=== PATIENT | female | born 1990 | race Caucasian/White ===

== ENCOUNTER 2018-04-18 20:40 | Emergency (ER) | payer OTHER, SELFPAY ==
[2018-04-18] MEDS ORDERED: HYDROCODONE/APAP 7.5/325 MG TAB ONE (21:18)
[2018-04-18 22:12] LABS: Urine Blood NEGATIVE (NEG); Urine Glucose NEGATIVE (NEG); Urine Protein TRACE (NEG)
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
[2018-04-18] MEDS ORDERED: KETOROLAC 30 MG/ML INJ ONE (22:14)
--- NOTE | 2018-04-18 22:40 | RAD REPORT ---
EXAM DESCRIPTION: Gerry Patel (2 Views)04/18/2018 9:25 pm CLINICAL HISTORY: Cough COMPARISON: None FINDINGS: The lungs appear clear of acute infiltrate. The heart is normal size IMPRESSION: No acute abnormalities displayed
== END 2018-04-18 22:33 | disposition home or self-care (01) ==
LOC: ER 20:40
DX: S20.229A Contusion of unspecified back wall of thorax, initial encounter (principal); V43.52XA Car driver injured in collision with other type car in traffic accident, initial encounter; Y93.89 Activity, other specified; Y92.410 Unspecified street and highway as the place of occurrence of the external cause; F17.210 Nicotine dependence, cigarettes, uncomplicated
CPT/HCPCS: 71046; 81003; 81025; 96372; 99284

== ENCOUNTER 2018-09-27 17:52 | Emergency (ER) | payer SELFPAY ==
--- NOTE | 2018-09-27 20:18 | RAD REPORT ---
EXAM DESCRIPTION: RAD - Foot Left 3 View - 09/27/2018 7:57 pm CLINICAL HISTORY: Left foot pain and swelling, no precipitating event COMPARISON: None. FINDINGS: No fracture, dislocation or periosteal reaction. No acute or destructive bony process. No air or foreign body in the soft tissues. IMPRESSION: Negative left foot examination.
--- NOTE | 2018-09-27 20:36 | ER ---
Nurse's Notes [facility] Name: Iliana Duff Age: 27 yrs Sex: Female : 1990 Arrival Date: 09/27/2018 Time: 17:55 Bed 11 Private MD: Diagnosis: Pain in left foot Presentation: 09/27 17:56 Presenting complaint: Patient states: left foot pain and swelling that started today sv after getting out of bed. Transition of care: patient was not received from another setting of care. Onset of symptoms was September 27, 2018. Care prior to arrival: None. 17:56 Method Of Arrival: Ambulatory sv 17:56 Acuity: LOGAN 4 sv 20:24 Risk Assessment: Do you want to hurt yourself or someone else? Patient reports no jl3 desire to harm self or others. Initial Sepsis Screen: Does the patient meet any 2 criteria? HR > 90 bpm. Does the patient have a suspected source of infection? No. Patient's initial sepsis screen is negative. Triage Assessment: 17:56 General: Appears in no apparent distress. uncomfortable, Behavior is calm, cooperative, sv appropriate for age. Pain: Complains of pain in left foot Pain currently is 8 out of 10 on a pain scale. Neuro: Level of Consciousness is awake, alert, obeys commands, Oriented to person, place, time, situation, Moves all extremities. Full function Gait is steady, with slight limp. Respiratory: Respiratory effort is even, unlabored, Respiratory pattern is regular, symmetrical. 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 - Social history:: Smoking status: Patient uses tobacco products, smokes one-half pack cigarettes per day. - Ebola Screening: : No symptoms or risks identified at this time. Screenin:24 Abuse screen: Intervention for positive screen: None noted. Nutritional screening: No jl3 deficits noted. Tuberculosis screening: No symptoms or risk factors identified. Fall Risk None identified. Assessment: 19:21 General: Appears uncomfortable, well developed, Behavior is calm, cooperative, Reports jl3 Pt states woke this a.m. and stepped onto floor with L. foot, felt pain. States pain 8/10 currently. Inflammation noted to L. medial foot. Pain: Complains of pain in instep of left foot and arch of left foot Pain currently is 8 out of 10 on a pain scale. Pain began 4 hours ago. Is lasting more than 1 hour. Alleviated by rest, Aggravated by weight bearing. Neuro: No deficits noted. Cardiovascular: No deficits noted. Respiratory: No deficits noted. GI: No deficits noted. : No deficits noted. EENT: No deficits noted. Musculoskeletal: Tenderness present in left foot. Injury Description: Inflammation to L. medial foot. Vital Signs: 17:56 BP 140 / 87; Pulse 107; Resp 18; Temp 98.3; Pulse Ox 100% ; Weight 101.15 kg; Height 5 sv ft. 3 in. (160.02 cm); Pain 8/10; 20:23 BP 132 / 76; Pulse 98; Resp 18; Pulse Ox 99% ; Pain 3/10; jl3 17:56 Body Mass Index 39.50 (101.15 kg, 160.02 cm) sv ED Course: 17:55 Patient arrived in ED. mr 17:56 Triage completed. sv 17:57 Arm band placed on Patient placed in waiting room, Patient notified of wait time. sv 19:11 Laure [place] [facility]C [facility] kb 19:11 Joel Aguilar MD is Attending Physician. kb 19:21 Moe Asencio RN is Primary Nurse. jl3 19:57 X-ray completed. Portable x-ray completed in exam room. Patient tolerated procedure ag1 well. 19:57 Foot Left 3 View XRAY In Process Unspecified. EDMS 20:47 No provider procedures requiring assistance completed. Patient did not have IV access jl3 during this emergency room visit. 20:48 Patient has correct armband on for positive identification. jl3 Administered Medications: No medications were administered Outcome: 20:35 Discharge ordered by . kb 20:48 Discharged to home ambulatory, with family. jl3 20:48 Condition: stable 20:48 Discharge instructions given to patient, friend, Prescriptions given X 1. 20:48 Patient left the ED. jl3 Signatures: Dispatcher [employer] EDMS Laure Birmingham FNP-C FNP-Ckb Verde, Stephanie, RN RN sv Choe, Moe Marrufo, RN RN jl3 Gabriel, Perla [facility]
--- NOTE | 2018-09-27 20:36 | EDPHYS ---
Physician Documentation [facility] Name: Iliana Duff Age: 27 yrs Sex: Female : 1990 Arrival Date: 09/27/2018 Time: 17:55 Bed 11 Private MD: ED Physician Joel Aguilar HPI: 09/27 21:06 This 27 yrs old Female presents to ER via Ambulatory with complaints of Foot kb Injury. 21:06 The patient presents with pain, that is acute, swelling, tenderness. The complaints kb affect the medial aspect of left heel. Context: The problem was sustained at home, resulted from an unknown cause, the patient can fully bear weight, the patient is able to ambulate. Onset: The symptoms/episode began/occurred this morning. Modifying factors: The symptoms are alleviated by nothing. the symptoms are aggravated by nothing. Associated signs and symptoms: Pertinent positives: swelling, Pertinent negatives calf tenderness, fever, nausea, numbness, rash, tingling, vomiting, warmth, weakness. Treatment prior to arrival includes: no previous treatment. Severity of symptoms: At their worst the symptoms were mild, in the emergency department the symptoms are unchanged. The patient has not experienced similar symptoms in the past. The patient has not recently seen a physician. 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 - Social history:: Smoking status: Patient uses tobacco products, smokes one-half pack cigarettes per day. - Ebola Screening: : No symptoms or risks identified at this time. ROS: 21:05 Constitutional: Negative for fever, chills, and weight loss, Cardiovascular: Negative kb for chest pain, palpitations, and edema, Respiratory: Negative for shortness of breath, cough, wheezing, and pleuritic chest pain, Abdomen/GI: Negative for abdominal pain, nausea, vomiting, diarrhea, and constipation, Back: Negative for injury and pain, Skin: Negative for injury, rash, and discoloration, Neuro: Negative for headache, weakness, numbness, tingling, and seizure. 21:05 MS/extremity: Positive for injury or acute deformity, pain, swelling, tenderness, of the medial aspect of left heel. Exam: 21:06 Constitutional: This is a well developed, well nourished patient who is awake, alert, kb and in no acute distress. Head/Face: Normocephalic, atraumatic. Chest/axilla: Normal chest wall appearance and motion. Nontender with no deformity. No lesions are appreciated. Cardiovascular: Regular rate and rhythm with a normal S1 and S2. No gallops, murmurs, or rubs. Normal PMI, no JVD. No pulse deficits. Respiratory: Lungs have equal breath sounds bilaterally, clear to auscultation and percussion. No rales, rhonchi or wheezes noted. No increased work of breathing, no retractions or nasal flaring. Abdomen/GI: Soft, non-tender, with normal bowel sounds. No distension or tympany. No guarding or rebound. No evidence of tenderness throughout. Back: No spinal tenderness. No costovertebral tenderness. Full range of motion. Skin: Warm, dry with normal turgor. Normal color with no rashes, no lesions, and no evidence of cellulitis. Neuro: Awake and alert, GCS 15, oriented to person, place, time, and situation. Cranial nerves II-XII grossly intact. Motor strength 5/5 in all extremities. Sensory grossly intact. Cerebellar exam normal. Normal gait. 21:06 Musculoskeletal/extremity: Extremities: grossly normal except: noted in the medial aspect of left heel: pain, swelling, tenderness, ROM: intact in all extremities, Circulation is intact in all extremities. Sensation intact. Weight bearing: able to fully bear weight. Vital Signs: 17:56 BP 140 / 87; Pulse 107; Resp 18; Temp 98.3; Pulse Ox 100% ; Weight 101.15 kg; Height 5 sv ft. 3 in. (160.02 cm); Pain 8/10; 20:23 BP 132 / 76; Pulse 98; Resp 18; Pulse Ox 99% ; Pain 3/10; jl3 17:56 Body Mass Index 39.50 (101.15 kg, 160.02 cm) sv MDM: 19:11 Patient medically screened. kb 21:05 Data reviewed: vital signs, nurses notes. Data interpreted: Pulse oximetry: on room air kb is 99 %. Interpretation: normal. Counseling: I had a detailed discussion with the patient and/or guardian regarding: the historical points, exam findings, and any diagnostic results supporting the discharge/admit diagnosis, radiology results, the need for outpatient follow up, a family practitioner, to return to the emergency department if symptoms worsen or persist or if there are any questions or concerns that arise at home. 09/27 19:37 Order name: Foot Left 3 View XRAY; Complete Time: 20:27 kb Administered Medications: No medications were administered Disposition: 09/27/18 20:35 Discharged to Home. Impression: Pain in left foot. - Condition is Stable. - Discharge Instructions: Foot Pain. - Prescriptions for Diclofenac Sodium 75 mg Oral Tablet, Delayed Release (E.C.) - take 1 tablet by ORAL route 2 times per day As needed; 30 tablet. - Medication Reconciliation Form, Thank You Letter, Antibiotic Education, Prescription Opioid Use form. - Follow up: Emergency Department; When: As needed; Reason: Worsening of condition. Follow up: Private Physician; When: 2 - 3 days; Reason: Recheck today's complaints, Continuance of care, Re-evaluation by your physician. Addendum: 10/05/2018 03:22 Co-signature as Attending Physician, Joel Aguilar MD. g s Signatures: Dispatcher [employer] EDMS Laure Birmingham, AUTOMOBILE RENTAL AGENT-C AUTOMOBILE RENTAL AGENT-Ckb Heather Mejia RN RN Moe Can RN RN jl3 Joel Aguilar MD MD Corrections: (The following items were deleted from the chart) 09/27 20:48 20:35 09/27/2018 20:35 Discharged to Home. Impression: Pain in left foot. Condition is jl3 Stable. Forms are Medication Reconciliation Form, Thank You Letter, Antibiotic Education, Prescription Opioid Use. Follow up: Emergency Department; When: As needed; Reason: Worsening of condition. Follow up: Private Physician; When: 2 - 3 days; Reason: Recheck today's complaints, Continuance of care, Re-evaluation by your physician. kb
== END 2018-09-27 20:48 | disposition home or self-care (01) ==
LOC: ER 17:52
DX: M79.672 Pain in left foot (principal); F17.210 Nicotine dependence, cigarettes, uncomplicated

== ENCOUNTER 2019-06-28 20:49 | Emergency (ER) | payer OTHER, SELFPAY ==
[2019-06-28] MEDS ORDERED: NA CHLORIDE 0.9% 1,000 ML ONE (22:03)
[2019-06-28] MEDS ORDERED: ACETAMINOPHEN 500 MG TAB ONE (22:03)
[2019-06-28] MEDS ORDERED: ONDANSETRON 4 MG/2 ML VIAL ONE (22:03)
[2019-06-28 22:11] LABS: Absolute Lymphocytes (CBC) 2.8 K/uL (0.7-4.9); Basophils % 0.8 % (0-1.3); Lymphocytes % 25.7 % (15.3-44.8); MPV 8.2 fL (7.6-11.3); RBC Red Blood Cell Count 4.34 M/uL (3.86-4.86)
[2019-06-28 22:22] LABS: Urine Blood NEGATIVE (NEG); Urine Glucose NEGATIVE (NEG); Urine Protein NEGATIVE (NEG); Urine Specific Gravity 1.025 (1.005-1.030); Urine pH 6.5 (5.0-7.0)
[2019-06-28 22:24] LABS: Urine Bacteria LOADED /HPF (<20); Urine Culture Reflex Order REFLEXED; Urine RBC <5 /HPF (NONE SEEN)
[2019-06-28 22:27] LABS: ALT/SGPT 17 U/L (12-78); AST/SGOT 13 U/L (15-37); Alkaline Phosphatase 111 U/L (45-117); BUN Blood Urea Nitrogen 6 mg/dL (7-18); Bicarbonate 21 mmol/L (21-32); Bilirubin Direct < 0.1 mg/dL (0-0.2); Bilirubin Total 0.2 mg/dL (0.2-1.0); Glucose Level 93 mg/dL (74-106); Lipase 67 U/L (73-393); Potassium 3.5 mmol/L (3.5-5.1); Sodium Level 137 mmol/L (136-145)
[2019-06-28] MEDS ORDERED: CEFTRIAXONE/SWI 1gm 1 GM/10 ML SYR ONE (22:30)
--- NOTE | 2019-06-28 22:30 | ER ---
Nurse's Notes [facility] Name: Iliana Duff Age: 28 yrs Sex: Female : 1990 Arrival Date: 06/28/2019 Time: 20:59 Bed 5 Private MD: Diagnosis: Acute cystitis Presentation: 06/28 21:06 Presenting complaint: Patient states: umbilical pain that radiates to lower abdominal tl2 area since 3:00 this afternoon. Denies vaginal bleeding or spotting. Pt reports a few episodes of vomiting and nausea. Pt is 11 weeks . Transition of care: patient was not received from another setting of care. Onset of symptoms was June 28, 2019 at 15:00. Risk Assessment: Do you want to hurt yourself or someone else? Patient reports no desire to harm self or others. Initial Sepsis Screen: Does the patient meet any 2 criteria? No. Patient's initial sepsis screen is negative. Does the patient have a suspected source of infection? No. Patient's initial sepsis screen is negative. Care prior to arrival: None. 21:06 Method Of Arrival: Ambulatory tl2 21:06 Acuity: LOGAN 3 tl2 Triage Assessment: 21:08 General: Appears in no apparent distress. uncomfortable, Behavior is calm, cooperative, tl2 appropriate for age. Pain: Complains of pain in umbilical area and suprapubic area Pain currently is 8 out of 10 on a pain scale. Quality of pain is described as sharp, Pain began 4 hours ago. Is continuous. Neuro: Level of Consciousness is awake, alert, obeys commands, Oriented to person, place, time, situation. Cardiovascular: Denies chest pain. Respiratory: Airway is patent Respiratory effort is even, unlabored, Respiratory pattern is regular, symmetrical. GI: Reports lower abdominal pain, nausea, vomiting. : Denies discharge, vaginal bleeding. Derm: Skin is pink, warm \T\ dry. 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 - Social history:: Smoking status: Patient/guardian denies using tobacco, the patient reports quitting approximately .3 years ago. - Ebola Screening: : No symptoms or risks identified at this time. Screenin:10 Abuse screen: Denies threats or abuse. Nutritional screening: No deficits noted. tl2 Tuberculosis screening: No symptoms or risk factors identified. Fall Risk None identified. Assessment: 21:12 General: see triage assessment. tl2 23:15 Reassessment: Patient appears in no apparent distress at this time. Patient and/or tl2 family updated on plan of care and expected duration. Pain level reassessed. Patient is alert, oriented x 3, equal unlabored respirations, skin warm/dry/pink. Patient states feeling better. Vital Signs: 21:08 BP 118 / 74; Pulse 86; Resp 18; Temp 98.1; Pulse Ox 98% on R/A; Weight 102.51 kg; tl2 Height 5 ft. 3 in. (160.02 cm); Pain 8/10; 22:06 BP 112 / 61; Pulse 72; Resp 18; Pulse Ox 98% on R/A; tl2 23:15 BP 112 / 61; Pulse 80; Resp 18; Pulse Ox 98% on R/A; tl2 21:08 Body Mass Index 40.03 (102.51 kg, 160.02 cm) tl2 ED Course: 20:59 Patient arrived in ED. cl3 21:02 Dima Reyna PA is PHCP. jr8 21:02 Giovani Dasilva MD is Attending Physician. jr8 21:06 Jodie Greer, EILEEN is Primary Nurse. tl2 21:08 Triage completed. tl2 21:08 Arm band placed on right wrist. tl2 21:10 Patient has correct armband on for positive identification. Placed in gown. Bed in low tl2 position. Call light in reach. Side rails up X 1. 21:12 Inserted saline lock: 20 gauge in right antecubital area, using aseptic technique. tl2 Blood collected. placed by kassidy Sheppard. 22:03 Dana Tomas, EILEEN is Primary Nurse. tl1 23:15 No provider procedures requiring assistance completed. IV discontinued, intact, tl2 bleeding controlled, No redness/swelling at site. Pressure dressing applied. Administered Medications: 22:13 Drug: NS 0.9% 1000 ml Route: IV; Rate: 1000 ml; Site: right antecubital; tl2 23:20 Follow up: IV Status: Completed infusion; IV Intake: 1000ml tl2 22:13 Drug: Tylenol 1000 mg Route: PO; tl2 23:21 Follow up: Response: No adverse reaction tl2 22:13 Drug: Zofran 4 mg Route: IVP; Site: right antecubital; tl2 23:00 Follow up: Response: No adverse reaction; Nausea is decreased tl2 22:35 Drug: Rocephin 1 grams {Note: slow IV push.} Route: IV; Rate: calculated rate; Site: tl1 right antecubital; 23:00 Follow up: IV Status: Completed infusion; IV Intake: 50ml tl2 Intake: 23:00 IV: 50ml; Total: 50ml. tl2 23:20 IV: 1000ml; Total: 1050ml. tl2 Outcome: 22:30 Discharge ordered by MD. piper 23:15 Discharged to home ambulatory, with family. tl2 23:15 Condition: stable 23:15 Discharge instructions given to patient, Instructed on discharge instructions, follow up and referral plans. medication usage, Demonstrated understanding of instructions, follow-up care, medications, Prescriptions given X 1. 23:20 Patient left the ED. tl2 Signatures: Dima Reyna PA PA jr8 Dana Tomas RN RN tl1 Jodie Greer RN RN tl2 Tarsha Ferraro cl3
--- NOTE | 2019-06-28 22:31 | EDPHYS ---
Physician Documentation [facility] Name: Iliana Duff Age: 28 yrs Sex: Female : 1990 Arrival Date: 06/28/2019 Time: 20:59 Bed 5 Private MD: TON Physician Giovani Dasilva HPI: 06/28 21:43 This 28 yrs old Female presents to ER via Ambulatory with complaints of jr8 Abdominal Pain. 21:43 The patient presents with abdominal pain in the lower abdomen. Onset: The jr8 symptoms/episode began/occurred today. The symptoms do not radiate. Associated signs and symptoms: Pertinent negatives: nausea, vomiting, and diarrhea. Modifying factors: The symptoms are alleviated by nothing. Severity of pain: At its worst the pain was moderate. The patient has not experienced similar symptoms in the past. Pt is about 11 weeks , has had three normal US from her OB, began having lower abd pain today. . 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 - Social history:: Smoking status: Patient/guardian denies using tobacco, the patient reports quitting approximately .3 years ago. - Ebola Screening: : No symptoms or risks identified at this time. ROS: 21:44 Constitutional: Negative for fever, chills, and weight loss, Eyes: Negative for injury, jr8 pain, redness, and discharge, ENT: Negative for injury, pain, and discharge, Neck: Negative for injury, pain, and swelling, Cardiovascular: Negative for chest pain, palpitations, and edema, Respiratory: Negative for shortness of breath, cough, wheezing, and pleuritic chest pain, Back: Negative for injury and pain, : Negative for injury, bleeding, discharge, and swelling, MS/Extremity: Negative for injury and deformity, Neuro: Negative for headache, weakness, numbness, tingling, and seizure. 21:44 Abdomen/GI: Positive for abdominal pain, Negative for nausea, vomiting, and diarrhea. Exam: 21:44 Constitutional: This is a well developed, well nourished patient who is awake, alert, jr8 and in no acute distress. Head/Face: Normocephalic, atraumatic. Eyes: Pupils equal round and reactive to light, extra-ocular motions intact. Lids and lashes normal. Conjunctiva and sclera are non-icteric and not injected. Cornea within normal limits. Periorbital areas with no swelling, redness, or edema. ENT: Nares patent. No nasal discharge, no septal abnormalities noted. Tympanic membranes are normal and external auditory canals are clear. Oropharynx with no redness, swelling, or masses, exudates, or evidence of obstruction, uvula midline. Mucous membranes moist. Neck: Trachea midline, no thyromegaly or masses palpated, and no cervical lymphadenopathy. Supple, full range of motion without nuchal rigidity, or vertebral point tenderness. No Meningismus. Chest/axilla: Normal chest wall appearance and motion. Nontender with no deformity. No lesions are appreciated. Cardiovascular: Regular rate and rhythm with a normal S1 and S2. No gallops, murmurs, or rubs. Normal PMI, no JVD. No pulse deficits. Respiratory: Lungs have equal breath sounds bilaterally, clear to auscultation and percussion. No rales, rhonchi or wheezes noted. No increased work of breathing, no retractions or nasal flaring. Back: No spinal tenderness. No costovertebral tenderness. Full range of motion. MS/ Extremity: Pulses equal, no cyanosis. Neurovascular intact. Full, normal range of motion. Neuro: Awake and alert, GCS 15, oriented to person, place, time, and situation. Cranial nerves II-XII grossly intact. Motor strength 5/5 in all extremities. Sensory grossly intact. Cerebellar exam normal. Normal gait. 21:44 Abdomen/GI: Inspection: abdomen appears normal, obese Bowel sounds: normal, in all quadrants, Palpation: soft, in all quadrants, mild abdominal tenderness, in the suprapubic area, right lower quadrant and left lower quadrant, Indicators: McBurney's point is not tender, Matt's sign is negative, Rovsing's sign is negative, Obturator sign is negative, Psoas sign is negative. Vital Signs: 21:08 BP 118 / 74; Pulse 86; Resp 18; Temp 98.1; Pulse Ox 98% on R/A; Weight 102.51 kg; tl2 Height 5 ft. 3 in. (160.02 cm); Pain 8/10; 22:06 BP 112 / 61; Pulse 72; Resp 18; Pulse Ox 98% on R/A; tl2 23:15 BP 112 / 61; Pulse 80; Resp 18; Pulse Ox 98% on R/A; tl2 21:08 Body Mass Index 40.03 (102.51 kg, 160.02 cm) tl2 MDM: 21:02 Patient medically screened. jr8 22:29 Data reviewed: nurses notes, EMS record, lab test result(s). Data interpreted: Pulse jr8 oximetry: on room air is 98 %. Interpretation: normal. Special discussion: 06/28 21:43 Order name: Basic Metabolic Panel; Complete Time: 23:15 [facility] 06/28 21:43 Order name: CBC with Diff; Complete Time: 22:26 [facility] 06/28 21:43 Order name: Creatinine for Radiology; Complete Time: 22:26 [facility] 06/28 21:43 Order name: Hepatic Function; Complete Time: 23:15 8 06/28 21:43 Order name: Lipase; Complete Time: 23:15 8 06/28 21:43 Order name: Urine Microscopic Only; Complete Time: 22:26 [facility] 06/28 21:43 Order name: IV Saline Lock; Complete Time: 21:48 [facility] 06/28 22:19 Order name: Urine Dipstick--Ancillary (enter results); Complete Time: 22:26 [facility] 06/28 22:19 Order name: Urine --Ancillary (enter results); Complete Time: 22:26 [facility] 06/28 22:27 Order name: Urine Culture [facility] 06/28 21:43 Order name: Labs collected and sent; Complete Time: 21:48 [facility] 06/28 21:43 Order name: Urine Dipstick-Ancillary (obtain specimen); Complete Time: 22:13 jr8 Administered Medications: 22:13 Drug: NS 0.9% 1000 ml Route: IV; Rate: 1000 ml; Site: right antecubital; tl2 23:20 Follow up: IV Status: Completed infusion; IV Intake: 1000ml tl2 22:13 Drug: Tylenol 1000 mg Route: PO; tl2 23:21 Follow up: Response: No adverse reaction tl2 22:13 Drug: Zofran 4 mg Route: IVP; Site: right antecubital; tl2 23:00 Follow up: Response: No adverse reaction; Nausea is decreased tl2 22:35 Drug: Rocephin 1 grams {Note: slow IV push.} Route: IV; Rate: calculated rate; Site: tl1 right antecubital; 23:00 Follow up: IV Status: Completed infusion; IV Intake: 50ml tl2 Disposition: 06/28/19 22:30 Discharged to Home. Impression: Acute cystitis. - Condition is Stable. - Discharge Instructions: Urinary Tract Infection, Adult. - Prescriptions for Keflex 500 mg Oral Capsule - take 1 capsule by ORAL route every 12 hours for 7 days; 14 capsule. - Medication Reconciliation Form, Thank You Letter, Antibiotic Education form. - Follow up: Private Physician; When: 2 - 3 days; Reason: Recheck today's complaints, Re-evaluation by your physician. - Problem is new. - Symptoms have improved. Addendum: 06/30/2019 08:34 Co-signature as Attending Physician, Giovani Dasilva MD I agree with the assessment and c dolan plan of care. Signatures: Dispatcher [employer] EDMO Giovani Dasilva MD MD cha Roszak, Josh, PA PA jr8 Dana Tomas RN RN tl1 Jodie Greer RN RN tl2 Corrections: (The following items were deleted from the chart) 06/28 23:20 22:30 06/28/2019 22:30 Discharged to Home. Impression: Acute cystitis. Condition is tl2 Stable. Forms are Medication Reconciliation Form, Thank You Letter, Antibiotic Education, Prescription Opioid Use. Follow up: Private Physician; When: 2 - 3 days; Reason: Recheck today's complaints, Re-evaluation by your physician. Problem is new. Symptoms have improved. jr8
[2019-06-28 23:27] VITALS: TEMP 98.1; O2SAT 98
[2019-06-28 23:29] VITALS: BP 112/61
== END 2019-06-28 23:20 | disposition home or self-care (01) ==
LOC: ER 20:49
DX: O23.11 Infections of bladder in pregnancy, first trimester (principal); Z3A.11 11 weeks gestation of pregnancy
CPT/HCPCS: 96365; 96361; 87088; 85025; 87086; 80048; 36415; 81025; 80076; 83690; 96375; 99284; J0696; J7030; J2405; 81003; 81015

== ENCOUNTER 2021-04-12 17:50 | Emergency (ER) | payer OTHER, SELFPAY ==
--- OUTSIDE RECORDS SUMMARY | 2021-04-12 17:53 | XMS REPORT | Continuity of Care Document ---
:1990 Author Organization [facility] t Address [address] [place] [address] Care Team Providers Name Role Phone Asked, Pcp Primary Care Physician Unavailable Richard Figueroa MD Attending Clinician 2, Lab Attending Clinician Unavailable Teresa DANIEL Attending Clinician Doctor Unassigned, Name Attending Clinician Unavailable Richard Figureoa MD Admitting Clinician Problems This patient has no known problems. Allergies, Adverse Reactions, Alerts This patient has no known allergies or adverse reactions. Social History Social Habit Start Date Stop Date Quantity Comments Source Sex Assigned At [birth year] [facility] 00:00:00 00:00:00 Smoking Status Start Date Stop Date Source Unknown if ever smoked [facility] Medications This patient has no known medications. Procedures This patient has no known procedures. Encounters Start End Encounter Admission Attending Care Care Encounter Source Date/Time Date/Time Type Type Clinicians Facility Department ID 2020-01-06 2020-01-07 [facility] Karime Figueroa [id number] 06:59:00 15:40:00 Encounter Richard Golden [id number] [place] [id number] [place] [id number] 2020-01-07 2020-01-07 Telephone Karime Figueroa [id number] 00:00:00 00:00:00 Cam Humphrey [id number] [place] [id number] [facility] [id number] [facility] [address] [facility] 2019-12-29 2019-12-29 Routine Karime Figueroa [facility] [id number] 15:08:36 15:30:00 Cam Humphrey [id number] Visit [place] [id number] [facility] [phone] [facility] hospital [address] [facility] 2019 2019 Dog Handler 2, Adc Lab [facility] [id number] 14:17:19 14:32:19 Visit Chantel [id number] [place] [id number] [facility] [id number] [address] 2019 2019 Routine Teresa [facility] [id number] 13:29:10 14:21:18 Mandi Chantel [id number] Visit [place] [id number] [facility] [phone] critical access hospital [address] [facility] 2019 2019 Orders Doctor SINDHU [id number] 00:00:00 00:00:00 Only Unassigned, DONY [id number] [place] [facility] [id number] Results This patient has no known results.
--- NOTE | 2021-04-12 19:48 | RAD REPORT ---
EXAM DESCRIPTION: RAD - Ankle Left 3 View -04/12/2021 7:25 pm CLINICAL HISTORY: Left ankle pain status post injury FINDINGS: No fracture or dislocation is seen. Soft tissue swelling
--- NOTE | 2021-04-12 19:49 | RAD REPORT ---
EXAM DESCRIPTION: RAD - Foot Left 3 View - 04/12/2021 7:24 pm CLINICAL HISTORY: Left Foot pain status post injury FINDINGS: No fracture or dislocation is seen.
--- NOTE | 2021-04-12 21:33 | EDPHYS ---
Physician Documentation [facility] Name: Iliana Duff Age: 30 yrs Sex: Female : 1990 Arrival Date: 04/12/2021 Time: 17:53 Bed 12 Private MD: TON Physician Vargas Nguyen HPI: 04/12 21:00 This 30 yrs old Female presents to ER via Wheelchair with complaints of Foot mh7 Injury. 21:00 The patient presents with an injury, pain, that is acute, swelling, tenderness. The mh7 complaints affect the left ankle. Onset: The symptoms/episode began/occurred today, at 11:00. Context: The problem was sustained at home, resulted from the patient falling, Standing on a chair, The mechanism of injury is unknown. The patient is unable to bear weight. must have assistance, from family. 21:00 Associated signs and symptoms: Pertinent positives: swelling, Pertinent negatives: calf mh7 tenderness, fever, nausea, numbness, rash, tingling, vomiting, warmth, weakness. Modifying factors: The symptoms are alleviated by nothing, the symptoms are aggravated by weight bearing, movement. Severity of symptoms: At their worst the symptoms were moderate, earlier today, in the emergency department the symptoms are unchanged. Patient states that she was standing on a chair to hang some curtains when the chair tilted over and she fell injuring her left ankle and foot. She denies any head trauma, LOC, or other injuries.. 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 - Social history:: Smoking status: Patient reports the use of cigarette tobacco products, smokes one pack cigarettes per day. ROS: 21:00 Constitutional: Negative for fever, chills, and weight loss, Eyes: Negative for injury, mh7 pain, redness, and discharge, ENT: Negative for injury, pain, and discharge, Neck: Negative for injury, pain, and swelling, Cardiovascular: Negative for chest pain, palpitations, and edema, Respiratory: Negative for shortness of breath, cough, wheezing, and pleuritic chest pain, Abdomen/GI: Negative for abdominal pain, nausea, vomiting, diarrhea, and constipation, Back: Negative for injury and pain, : Negative for injury, bleeding, discharge, and swelling, Skin: Negative for injury, rash, and discoloration, Neuro: Negative for headache, weakness, numbness, tingling, and seizure, Psych: Negative for depression, anxiety, suicide ideation, homicidal ideation, and hallucinations, Allergy/Immunology: Negative for hives, rash, and allergies, Endocrine: Negative for neck swelling, polydipsia, polyuria, polyphagia, and marked weight changes, Hematologic/Lymphatic: Negative for swollen nodes, abnormal bleeding, and unusual bruising. Exam: 21:00 Constitutional: This is a well developed, well nourished patient who is awake, alert, mh7 and in no acute distress. Head/Face: Normocephalic, atraumatic. Skin: Warm, dry with normal turgor. Normal color with no rashes, no lesions, and no evidence of cellulitis. 21:00 Neuro: Awake and alert, GCS 15, oriented to person, place, time, and situation. Cranial nerves II-XII grossly intact. Motor strength 5/5 in all extremities. Sensory grossly intact. Cerebellar exam normal. Normal gait. Psych: Awake, alert, with orientation to person, place and time. Behavior, mood, and affect are within normal limits. 21:00 Musculoskeletal/extremity: Extremities: noted in the Left ankle: decreased ROM, pain, swelling, tenderness, noted in the left foot: pain, tenderness, Mild proximal dorsal, ROM: limited active range of motion due to pain, in the Left ankle, limited passive range of motion due to pain, in the Left ankle, Circulation is intact in all extremities. Sensation intact. Compartment Syndrome exam of affected extremity: is normal. no numbness, no tingling, no sensation deficit, no palor, no weak pulses, Joints: the left ankle displays painful range of motion, swelling, tenderness, Weight bearing: is unable to bear weight, Tendon exam: specific tendon testing normal through active and passive range of motion Vital Signs: 19:08 BP 116 / 74; Pulse 78; Resp 16 S; Temp 97.6(TE); Pulse Ox 100% on R/A; Weight 104.33 kg ca1 (R); Height 5 ft. 3 in. (160.02 cm) (R); Pain 8/10; 21:04 BP 122 / 69; Pulse 81; Resp 16 S; Pulse Ox 100% on R/A; em 19:08 Body Mass Index 40.74 (104.33 kg, 160.02 cm) ca1 MDM: 21:30 Differential diagnosis: fracture, sprain. Data reviewed: vital signs, nurses notes, [facility] radiologic studies, plain films. Counseling: I had a detailed discussion with the patient and/or guardian regarding: the historical points, exam findings, and any diagnostic results supporting the discharge/admit diagnosis, radiology results, the need for outpatient follow up, a orthopedic surgeon, to return to the emergency department if symptoms worsen or persist or if there are any questions or concerns that arise at home. Response to treatment:. 21:32 Patient medically screened. [facility] 04/12 19:11 Order name: Foot Left 3 View XRAY; Complete Time: 21:02 [facility] 04/12 19:11 Order name: Ankle Left 3 View XRAY; Complete Time: 21:02 [facility] 04/12 21:20 Order name: Aircast Ankle Splint; Complete Time: 21:41 [facility] 04/12 21:20 Order name: Crutches; Complete Time: 21:41 [facility] Administered Medications: 21:17 Drug: [place] (HYDROcodone-acetaminophen) 5 mg-325 mg 1 tabs {Note: rass 0.} Route: PO; ca1 21:59 Follow up: Response: No adverse reaction; Marked relief of symptoms; Pain is decreased em Disposition Summary: 04/12/21 21:32 Discharge Ordered Location: Home [facility] Problem: new [facility] Symptoms: have improved [facility] Condition: Stable [facility] Diagnosis - Ankle Sprain, Left [facility] Followup: [facility] - With: Private Physician - When: 2 - 3 days - Reason: Worsening of condition, Recheck today's complaints, Continuance of care, Re-evaluation by your physician Followup: [facility] - With: Wes Paniagua MD - When: 2 - 3 days - Reason: Worsening of condition, Recheck today's complaints Discharge Instructions: - Discharge Summary Sheet [facility] - Crutch Use, Adult, [id number] [facility] - Ankle Sprain, [id number] [facility] Forms: - Medication Reconciliation Form [facility] - Thank You Letter [facility] - Antibiotic Education [facility] - Prescription Opioid Use [facility] Prescriptions: - Ibuprofen 800 mg Oral Tablet - take 1 tablet by ORAL route every 8 hours As needed take with food; 15 tablet; mh7 Refills: 0, Product Selection Permitted - Tramadol 50 mg Oral Tablet - take 1 tablet by ORAL route every 8 hours as needed; 12 tablet; Refills: 0, 7 Product Selection Permitted Signatures: Dispatcher [employer] Casi Cohen RN RN [facility] Vargas Nguyen MD MD [facility] Ed Prado RN
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
[2021-04-12] MEDS ORDERED: HYDROCODONE/APAP 5/325 MG TAB ONE (21:39)
[2021-04-12 22:46] VITALS: TEMP 97.6; O2SAT 100
[2021-04-12 22:47] VITALS: BP 122/69
== END 2021-04-12 21:59 | disposition home or self-care (01) ==
LOC: ER 17:50
DX: S93.402A Sprain of unspecified ligament of left ankle, initial encounter (principal); W07.XXXA Fall from chair, initial encounter; Y93.89 Activity, other specified; F17.210 Nicotine dependence, cigarettes, uncomplicated
CPT/HCPCS: 99284

== ENCOUNTER 2022-09-02 11:58 | Emergency (ER) | payer OTHER, SELFPAY ==
--- OUTSIDE RECORDS SUMMARY | 2022-09-02 12:01 | XMS REPORT | Continuity of Care Document ---
:1990 Author Organization [facility] t Address [address] [place] [address] Care Team Providers Name Role Phone Asked, No Pcp Primary Care Physician Unavailable MANDI MOORE Attending Clinician Unavailable Edwin Borges MD Attending Clinician EDWIN BORGES Attending Clinician Unavailable 2, [facility] Attending Clinician Unavailable Mandi Moore PA-C Attending Clinician Doctor Unassigned, [place] Attending Clinician Unavailable RACHEL AVILES Attending Clinician Unavailable RACHEL AVILES Admitting Clinician Unavailable Edwin Borges MD Admitting Clinician EDWIN BORGES Admitting Clinician Unavailable Payers Payer Name Policy Type Policy Number Effective Date Expiration Date Greta brice [facility] [id number] 2019 00:00:00 Problems This patient has no known problems. Allergies, Adverse Reactions, Alerts Allergy Allergy Status Severity Reaction(s) Onset Inactive Treating Comm ents Source Name Type Date Date Clinician NO KNOWN Drug Active Univers ALLERGIE Class ity of [facility] Social History Social Habit Start Date Stop Date Quantity Comments Source Sex Assigned At [birth year] [facility] 00:00:00 00:00:00 Smoking Status Start Date Stop Date Source Tobacco smoking consumption unknown [facility] Medications This patient has no known medications. Procedures This patient has no known procedures. Encounters Start End Encounter Admission Attending Care Care Encounter Source Date/Time Date/Time Type Type Clinicians Facility Department ID 2021-07-07 Outpatient P [facility] MANUELA [id number] [facility]patient [facility] MANUELA [id number] Univers 17:28:26 [facility] 2020-08-10 2020-08-10 [facility] [id number] Univers 08:00:00 08:00:00 [facility] 2020-02-09 2020-02-09 Outpatient R SVETLANAKELLI [facility] [id number] Univers 11:15:00 11:15:00 [facility] 2020-01-06 2020-01-07 Hospital Edwin Borges [facility] [id number] 06:59:00 15:40:00 Encounter [place] [id number] [place] [id number] [place] [id number] [facility] 2020-01-07 2020-01-07 Telephone Edwin Borges [facility] [id number] 00:00:00 00:00:00 [place] [id number] [place] [id number] Professio [phone] [address] 2020-01-05 2020-01-05 Outpatient R EDWIN BORGES [facility] [id number] Univers 11:00:00 11:00:00 [facility] 2019-12-29 2019-12-29 Outpatient R EDWIN BORGES [facility] [id number] Univers 15:30:00 15:30:00 [facility] 2019-12-29 2019-12-29 Routine Edwin Borges [facility] [id number] 15:08:36 15:30:00 [place] [id number] Visit [place] [id number] Professio [phone] [address] 2019-12-23 2019-12-23 Outpatient R IDRISNILSA [facility] [id number] Univers 13:30:00 [facility]30[facility] [place] 2, [facility] [id number] 14:17:19 14:32:19 Visit Chantel [id number] [place] [id number] Professio [phone] [facility] [address] [facility] 2019 2019 Routine [facility] [id number] 13:29:10 14:21:18 Mandi Golden [id number] Visit [place] [id number] Professio [phone] [facility] [address] [facility] 2019 2019 Outpatient R MARIELLA [facility] [id number] Univers 13:30:00 13:30:00 [facility] 2019 2019 Orders Doctor SINDHU [id number] 00:00:00 00:00:00 Only Unassigned, DONY [id number] [place] [facility] [id number] 2019-12-17 2019-12-17 Outpatient P STEFAN [facility] MANUEL[place] [id number] Univers 19:06:00 20:05:00 RACHEL [facility] 2019-12-09 2019-12-09 Outpatient EDWIN MULLINS [facility] [id number] Univers 13:00:00 13:00:00 [facility] 2019-11-25 2019-11-25 Outpatient Sebastián MOORE [facility] [id number] Univers 14:30:00 14:30:00 MANDI alexa [facility] 2019-11-11 2019-11-11 Outpatient EDWIN MULLINS [facility] [id number] Univers 16:00:00 16:00:00 [facility] 2019-05-27 2019-05-27 Outpatient EDWIN MULLINS [facility] [id number] Univers 14:52:44 23:59:00 [facility] Results Test Description Test Time Test Comments Results Result Comments Source CBC W/AUTO DIFF WITH PLATELETS 2022-04-01 02:25:25 Test Item Value Reference Range Interpretation Comme nts WBC (test code = 1001) 10.1 K/UL 3.5-11.0 RBC (test code = 1002) 4.48 M/UL 3.80-5.40 HEMOGLOBIN (test code = 12.4 G/DL 11.5-15.5 1003) HEMATOCRIT (test code = 37.2 % 34.0-45.0 1004) MCV (test code = 1005) 83.0 fL 80.0-99.0 MCH (test code = 1006) 27.7 PG 25.0-33.0 MCHC (test code = 1007) 33.3 G/DL 31.0-36.0 RDW (test code = 1038) 13.7 % 11.5-15.0 NEUTROPHILS (test code = 62.7 % 1008) LYMPHOCYTES (test code = 27.3 % 1010) MONOCYTES (test code = 1011) 7.7 % EOSINOPHILS (test code = 1.4 % 1012) BASOPHILS (test code = 1013) 0.4 % IMMATURE GRANULOCYTES (test 0.5 % code = 1036) NUCLEATED RBCS (test code = 0.0 /100 WBC'S See_Comment [Automated message] The 1065) system which ge nerated this result transmit jameel reference range: 0.0. The reference range was not u sed to interpret this result as normal/abnormal . PLATELET COUNT (test code = 444 K/UL 130-400 H 1015) ABSOLUTE NEUTROPHILS (test 6.35 K/UL 1.50-7.50 code = 1066) ABSOLUTE LYMPHOCYTES (test 2.77 K/UL 1.00-4.00 code = 1067) ABSOLUTE MONOCYTES (test 0.78 K/UL 0.20-1.00 code = 1068) ABSOLUTE EOSINOPHILS (test 0.14 K/UL 0.00-0.50 code = 1040) ABSOLUTE BASOPHILS (test 0.04 K/UL 0.00-0.20 code = 1069) ABS IMMATURE GRANULOCYTES 0.05 K/UL 0.00-0.10 (test code = 1020) ABS NUCLEATED RBCS (test 0.00 K/UL 0.00-0.11 UN LESS OTHERWISE INDICATED, code = 80180) ALL TESTING PE RFORMED ATCLINICAL PATH OLOGY LABORATORIES, [place]. [address] [address] LABORATORY DIRE CTOR: GARO CHAPMAN M.D. CLIA NUMBER [id number] [facility] [place]. [id number] VITAMIN [id number] 03:21:23 Test Item Value Reference Range Interpretation Comments VITAMIN B-12 (test code = 2840) 553 PG/ML 200-950 CBC W/AUTO DIFF WITH [id number] 02:36:58 Test Item Value Reference Range Interpretation Comments WBC (test code = 9.2 K/UL 3.5-11.0 1001) RBC (test code = 4.66 M/UL 3.80-5.40 1002) HEMOGLOBIN (test 13.3 G/DL 11.5-15.5 code = 1003) HEMATOCRIT (test 39.0 % 34.0-45.0 code = 1004) MCV (test code = 83.7 fL 80.0-99.0 1005) MCH (test code = 28.5 PG 25.0-33.0 1006) MCHC (test code = 34.1 G/DL 31.0-36.0 1007) RDW (test code = 13.6 % 11.5-15.0 1038) NEUTROPHILS (test 64.5 % code = 1008) LYMPHOCYTES (test 26.8 % code = 1010) MONOCYTES (test code 5.7 % = 1011) EOSINOPHILS (test 2.1 % code = 1012) BASOPHILS (test code 0.7 % = 1013) IMMATURE 0.2 % GRANULOCYTES (test code = 1036) NUCLEATED RBCS (test 0.0 /100 See_Comment [Autom ated message] code = 1065) WBC'S The system [employer] generated this result transmitted ref erence range: 0.0. The reference range was not used to int erpret this result as normal/abnormal . PLATELET COUNT (test 442 K/UL 130-400 H code = 1015) ABSOLUTE NEUTROPHILS 5.94 K/UL 1.50-7.50 (test code = 1066) ABSOLUTE LYMPHOCYTES 2.47 K/UL 1.00-4.00 (test code = 1067) ABSOLUTE MONOCYTES 0.52 K/UL 0.20-1.00 (test code = 1068) ABSOLUTE EOSINOPHILS 0.19 K/UL 0.00-0.50 (test code = 1040) ABSOLUTE BASOPHILS 0.06 K/UL 0.00-0.20 (test code = 1069) ABS IMMATURE 0.02 K/UL 0.00-0.10 GRANULOCYTES (test code = 1020) ABS NUCLEATED RBCS 0.00 K/UL 0.00-0.11 UNLESS O THERWISE (test code = 40749) INDICATE D, ALL TESTING PERFORM ED ATCLINICAL PATH OLOGY LABORATORIES, [facility]. [address] [place] [id number] [place] [address] DIRECTOR: GARO CHAPMAN M.D. CLIA NUMBER [id number] [facility] ACCREDITATION N O. [id number]
[2022-09-02] MEDS ORDERED: KETOROLAC 30 MG/ML INJ ONE (12:25)
[2022-09-02 12:31] LABS: Urine Blood Negative (Negative); Urine Glucose Negative (Negative); Urine Protein Negative (Negative); Urine pH 7.5 (5.0-7.0)
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
[2022-09-02 13:44] VITALS: BP 117/87; O2SAT 99
== END 2022-09-02 13:39 | disposition home or self-care (01) ==
LOC: ER 11:58
DX: S70.02XA Contusion of left hip, initial encounter (principal)
CPT/HCPCS: 72100; 72170; 81003